=== PATIENT | female | born 1950 | race Caucasian/White ===

== ENCOUNTER → 2024-04-04 | Outpatient (CLI) | payer MEDICARE, SELFPAY ==
[2024-04-04 09:30] LABS: Basophils % (Auto) 1 % (0-2.5); Eosinophils # (Auto) 0.2 Thou/mm3 (0.0-0.5); Eosinophils % (Auto) 3 % (0-10); Hematocrit 29.9 % (36.0-46.0); Immature Granulocytes % (Auto) 0 % (0-0); Immature Granulocytes Auto 0.02 Thou/mm3 (0.00-0.00); Lymphocytes # (Auto) 1.2 Thou/mm3 (1.0-4.8); Lymphocytes % (Auto) 16 % (10-50); Mean Corpuscular HGB Conc 28.4 g/dl (31.0-37.0); Mean Corpuscular Hemoglobin 19.1 pg (25.0-35.0); Mean Corpuscular Volume 67 fL (80-100); Monocytes # (Auto) 0.5 Thou/mm3 (0.0-0.8); Monocytes % (Auto) 7 % (0-12); Neutrophils # (Auto) 5.8 Thou/mm3 (1.8-7.7); Neutrophils % (Auto) 74 % (37-80); Nucleated Red Blood Cell % 0 /100 WBC (0); Platelet Count 238 Thou/mm3 (140-440); RDW Standard Deviation 47.1 fL (36.4-46.3); Red Blood Count 4.46 Miln/mm3 (4.00-5.20); White Blood Count 7.8 Thou/mm3 (3.6-11.0)
[2024-04-04 09:34] LABS: Hemoglobin 8.5 g/dL (12.0-16.0)
[2024-04-04 09:35] LABS: Collection Type, Urine Clean Catch
[2024-04-04 09:40] LABS: Glucose Estimated Average 171 mg/dL (80-131); Hemoglobin A1C 7.6 % Hgb (4.8-6.0)
[2024-04-04 09:58] LABS: Alanine Aminotransferase 15 U/L (10-49); Albumin, Serum 4.6 gm/dL (3.4-4.8); Albumin/Globulin Ratio 1.8 (1.2-2.2); Alkaline Phosphatase 74 U/L (46-116); Anion Gap 7 (7-16); Aspartate Amino Transferase 18 U/L (0-34); BUN/Creatinine Ratio 18 Ratio (12-20); Bilirubin,Total 0.4 mg/dL (0.3-1.2); Blood Urea Nitrogen 14 mg/dL (9-23); Calcium 9.4 mg/dL (8.3-10.6); Calcium (Corrected) 9.4 mg/dL (8.5-10.1); Carbon Dioxide 28.2 mMol/L (20.0-31.0); Cardiac Risk Estimate 2.3 RATIO (3.7-5.6); Chloride 103 mMol/L (98-107); Cholesterol 121 mg/dL (132-200); Creatinine (Component) 0.8 mg/dL (0.6-1.3); Free T4 (Free Thyroxine) 1.07 ng/dL (0.89-1.76); Globulin 2.6 gm/dL (2.3-3.5); Glucose 161 mg/dL (74-106); HDL Cholesterol 52 mg/dL (40-60); LDL Cholesterol,Calculated 55 mg/dL (0-130); Osmolality,Calculated 279 (275-295); Potassium 4.5 mMol/L (3.4-5.1); Sodium 138 mMol/L (136-145); Thyroid Stimulating Hormone 1.66 uIU/mL (0.55-4.78); Total Protein 7.2 gm/dL (5.7-8.2); Triglycerides 71 mg/dL (30-150); eGFR > 60 See Note
[2024-04-04 10:51] LABS: Creatinine MALB Rnd Ur 54 mg/dL (30-125); Microalbumin Creat Ratio 6 mg/gCrea (<30); Microalbumin, Random Urine 3 mg/L (0-300)
[2024-04-04 10:55] LABS: Bilirubin,Urine Negative (Negative); Blood,Urine Negative (Negative); Clarity,Urine Clear (Clear/Hazy); Color,Urine Lt-Yellow (Lt Yel-Yel); Glucose, Urine 4+ (Negative); Ketones,Urine Negative (Negative); Leukocyte Esterase,Urine Positive (Negative); Nitrite,Urine Negative (Negative); Protein,Urine Negative (Neg - Trace); RBC,Urine 3 /hpf (0-3); Specific Gravity,Urine 1.025 (1.001-1.035); Squamous Epithelial Cell,Urine 2 /hpf (0-5); Urobilinogen,Urine Negative mg/dL (0.0-1.0); WBC,Urine 3 /hpf (0-5)
[2024-04-04 11:04] LABS: Path Review Blood Smear Sent to Pathologist
[2024-04-11 06:58] LABS: Direct LDL* 59 mg/dL (<100)
== END | disposition home or self-care (01) ==
PROVIDERS: PCP Family Medicine; Referring Provider Nurse Practitioner Family; Visit Provider Nurse Practitioner Family
DX: E11.21 Type 2 diabetes mellitus with diabetic nephropathy (principal); I10 Essential (primary) hypertension; E78.00 Pure hypercholesterolemia, unspecified; Z13.29 Encounter for screening for other suspected endocrine disorder
CPT/HCPCS: 36415; 80053; 80061; 81001; 82043; 82570; 83036; 83721; 84439; 84443; 85025

== ENCOUNTER → 2024-07-17 | Outpatient (CLI) | payer MEDICARE, MEDICAID, SELFPAY ==
[2024-07-17 11:36] LABS: Basophils % (Auto) 1 % (0-2.5); Eosinophils # (Auto) 0.2 Thou/mm3 (0.0-0.5); Eosinophils % (Auto) 3 % (0-10); Hematocrit 33.4 % (36.0-46.0); Hemoglobin 10.2 g/dL (12.0-16.0); Immature Granulocytes % (Auto) 0 % (0-0); Immature Granulocytes Auto 0.02 Thou/mm3 (0.00-0.00); Lymphocytes # (Auto) 1.3 Thou/mm3 (1.0-4.8); Lymphocytes % (Auto) 18 % (10-50); Mean Corpuscular HGB Conc 30.5 g/dl (31.0-37.0); Mean Corpuscular Hemoglobin 20.9 pg (25.0-35.0); Mean Corpuscular Volume 68 fL (80-100); Monocytes # (Auto) 0.6 Thou/mm3 (0.0-0.8); Monocytes % (Auto) 8 % (0-12); Neutrophils # (Auto) 5.1 Thou/mm3 (1.8-7.7); Neutrophils % (Auto) 70 % (37-80); Nucleated Red Blood Cell % 0 /100 WBC (0); Platelet Count 235 Thou/mm3 (140-440); Red Blood Count 4.88 Miln/mm3 (4.00-5.20); White Blood Count 7.2 Thou/mm3 (3.6-11.0)
[2024-07-17 11:43] LABS: Iron 20 mcg/dL (50-170); Total Iron Binding Capacity 459 mcg/dL (250-425)
[2024-07-17 11:55] LABS: Alanine Aminotransferase 10 U/L (10-49); Albumin, Serum 4.8 gm/dL (3.4-4.8); Albumin/Globulin Ratio 1.7 (1.2-2.2); Alkaline Phosphatase 83 U/L (46-116); Anion Gap 9 (7-16); Aspartate Amino Transferase 21 U/L (0-34); BUN/Creatinine Ratio 12 Ratio (12-20); Bilirubin,Total 0.3 mg/dL (0.3-1.2); Blood Urea Nitrogen 11 mg/dL (9-23); Calcium 9.4 mg/dL (8.3-10.6); Calcium (Corrected) 9.4 mg/dL (8.5-10.1); Carbon Dioxide 26.2 mMol/L (20.0-31.0); Cardiac Risk Estimate 3.6 RATIO (3.7-5.6); Chloride 106 mMol/L (98-107); Cholesterol 181 mg/dL (132-200); Creatinine (Component) 0.9 mg/dL (0.6-1.3); Globulin 2.8 gm/dL (2.3-3.5); Glucose 121 mg/dL (74-106); HDL Cholesterol 50 mg/dL (40-60); LDL Cholesterol,Calculated 107 mg/dL (0-130); Osmolality,Calculated 281 (275-295); Potassium 4.8 mMol/L (3.4-5.1); Sodium 141 mMol/L (136-145); Total Protein 7.6 gm/dL (5.7-8.2); Triglycerides 119 mg/dL (30-150); eGFR > 60 See Note
== END | disposition home or self-care (01) ==
PROVIDERS: PCP Nurse Practitioner Family; Referring Provider Nurse Practitioner Family; Visit Provider Nurse Practitioner Family
DX: D50.8 Other iron deficiency anemias (principal); E11.21 Type 2 diabetes mellitus with diabetic nephropathy; E78.00 Pure hypercholesterolemia, unspecified
CPT/HCPCS: 36415; 80053; 80061; 83540; 83550; 83721; 85025

== ENCOUNTER → 2024-07-18 | Outpatient (CLI) | payer MEDICARE, MEDICAID, SELFPAY ==
--- NOTE | 2024-07-18 10:11 | XR_ITS ---
Examination: PA lateral chest 2 views TECHNIQUE: Upright PA lateral chest 2 views Date and time: July 18, 2024 1052 hours Comparison February 08, 2019 Coughing congestion 2 weeks. FINDINGS: Subtle nodular opacities in both mid lungs and right base as well as right base medially Normal heart size Moderate osteopenia IMPRESSION: Findings consistent with early bilateral pneumonia, follow-up strongly recommended to document clearing and exclude underlying pulmonary nodules
== END | disposition home or self-care (01) ==
LOC: CDIM 10:05
PROVIDERS: PCP Nurse Practitioner Family; Referring Provider Nurse Practitioner Family; Visit Provider Nurse Practitioner Family
DX: R91.8 Other nonspecific abnormal finding of lung field (principal)
CPT/HCPCS: 71046

== ENCOUNTER 2024-07-30 16:16 | Emergency (ER) | payer MEDICARE, MEDICAID, SELFPAY ==
[2024-07-30] VITALS (10 sets, daily range): BP systolic 139–177; BP diastolic 64–86; PULSE 66–94; RESP 13–24; TEMP 36.1–36.8; O2SAT 96–99; BMI 24.9
--- NOTE | 2024-07-30 17:14 | PC.NURSE ---
Patient rashaad from home with altered mental status x 1 day with confusion/lethargy. Per medic, IVL was placed and patient pulled out. Patient denies pain, states she doesnt know.
--- NOTE | 2024-07-30 18:22 | EKG_ITS ---
[facility] Test Date: 2024-07-30 Pat Name: JUVENCIO OATES Department: Room: - Gender: Female Echocardiography Tech: : 1950 Requested By: Sal Lakhani Order Number: [id number] Reading MD: Sal Lakhani Measurements Intervals [place] Rate: 75 P: 79 SC: 152 QRS: 42 QRSD: 112 T: 64 QT: 420 QTc: 471 Interpretive Statements SINUS RHYTHM POSSIBLE LEFT ATRIAL ENLARGEMENT [-0.1mV P-WAVE IN V1/V2] MODERATE INTRAVENTRICULAR CONDUCTION DELAY [110+ ms QRS DURATION] No previous ECG available for comparison /store/S0/[id number]/ecg/[id number].pdf
--- NOTE | 2024-07-30 18:22 | PD.EDAMS ---
Altered Mental Status RME/HPI General Chief Complaint: Altered Mental Status Stated Complaint: ALTERED Time Seen by Provider: 07/30/24 18:20 Arrival date/time: 07/30/24 16:16 RME / HPI RME / HPI narrative: This section includes all my notes and documentations, including HPI, PE, and ED course. Sal Westbrook MD HPI: 73 y/o female with Hx of Type II DM and Hypertension presents to ED BIBA from home c/o vomiting, confusion, dizziness, and weakness x 40 hours. Daughter reports patient began vomiting shortly after consuming chicken livers that had been sitting in the refrigerator for a few days. Patient is usually independent, coherent, and ambulates well on her own. No other complaints. ROS: All negative except as documented in HPI. Physical Exam: General: Alert and disoriented. Appearance with severe malaise noted. Eyes: Conjunctivae and lids clear. EOMI. PERRL. ENT: No nasal congestion. Neck: Supple. Heart: RRR. Lungs: No respiratory distress. Good air movement. No significant rhonchi, wheezing, rales. Abdomen: Soft with equivocal tenderness. Normal bowel sounds. No distension. No rebound or guarding. Back: No CVA tenderness. Legs: No clubbing, cyanosis, edema. Skin: Warm and dry. Neuro: Alert and disoriented. Cranial Nerves II-XII grossly intact. No peripheral motor deficits. I reviewed EMS notes. I reviewed all diagnostic test results. My interpretation of the EKG is: Sinus rhythm (75 bpm) with nonspecific ST-T changes. Sal Westbrook MD My interpretation of the chest x-ray is suspicious for early pneumonia in the left upper lobe. My review of the Head CT report is very large left temporal occipital lobe hemorrhage with surrounding edema and significant mass effect as above, differential would include hemorrhagic infarct, rupture of an aneurysm, hemorrhage in an occipital lobe neoplasm. My review of the Chest/Abdomen/Pelvis CT report is numerous bilateral pulmonary nodules, likely metastatic pulmonary nodular disease. 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 Blood tests unremarkable. COVID/influenza negative. Urine specimen pending. At this point, diagnoses include Intracranial hemorrhage. Treatment here included IV fluid, Zofran. Patient remained stable. I discussed the case with Dr. Agudelo ([facility]). About the presentation and exam and diagnostics and treatments here. And need of further care there. Will accept the patient. Sal Westbrook MD Related Data Home Medications ?Medication ?Instructions ?Recorded ?Confirmed metformin 500 mg tablet 1,000 mg PO BID 08/23/18 02/06/19 lisinopril 10 mg tablet 2.5 mg PO QDAY 11/02/18 02/06/19 atorvastatin 40 mg tablet 40 mg PO QPM 01/24/19 02/06/19 hydrochlorothiazide 12.5 mg 12.5 mg PO QDAY 01/24/19 02/06/19 capsule (Microzide) Previous Rx's ?Medication ?Instructions ?Recorded blood-glucose meter #1 ea 08/24/18 lancets 30 gauge (1st Tier Unilet #100 ea 08/24/18 ComforTouch Lancet) Allergies Allergy/AdvReac Type Severity Reaction Status Date / Time adhesive Allergy Severe severe Verified 07/30/24 17:13 adhesive tape Allergy Severe Rash Verified 07/30/24 17:13 Latex, Natural Rubber Allergy Severe Hives Verified 07/30/24 17:13 codeine Allergy Vomiting Verified 07/30/24 17:13 morphine Allergy Verified 07/30/24 17:13 Review of Systems Review of Systems Systems Reviewed: All systems reviewed, normal except as documented Past Medical History Past Medical History CARDIAC: Positive Cardiac Disorders, Hypercholesterolemia, Edema and Hypertension GASTROINTESTINAL: Positive Gastrointestinal Disorders (HEP C), Hepatitis (Hep C) and Cirrhosis REPRODUCTIVE: Positive Previous Pregnancies ENDOCRINE: Positive Endocrine Disorders and Diabetes Mellitus Type 2 PSYCHO/SOCIAL: Positive Depression and Anxiety Surgical History SURGICAL: Positive Tonsillectomy and Abdominal Surgery (EXPLORATORY LAP) Social History SECOND HAND EXPOSURE: Yes ED Exam Narrative Physical exam: Refer to HPI above Course Quality Measures none Orders Category Date Time Status Bedside COVID-19 Antigen Test NOW Care 07/30/24 18:21 Active Bedside Influenza A&B Antigen Test NOW Care 07/30/24 18:21 Completed EKG (ED ONLY) *Do not use* NOW Care 07/30/24 18:22 Completed Saline [Insert IV] NOW Care 07/30/24 18:21 Active Straight [In and Out Catheter] X1 Care 07/30/24 18:21 Completed Referral - Executive Director Of Nursing Stat Cons 07/30/24 18:53 Active Transfer to another facility [Transfer/Discharge] Stat Discharge 07/30/24 19:[address] chest abdomen pelvis wo Stat Exams 07/30/24 18:[address] head/brain wo con Stat Exams 07/30/24 18:23 Completed EKG (ED Only) Stat Exams 07/30/24 18:22 Draft XR chest 1V portable Stat Exams 07/30/24 18:23 Completed ESMOLOL in NS 2000 MG IVPB Med 07/30/24 19:39 Active 2,000 mg in 100 ml IV 500 mcg/kg/min Ondansetron Inj [Zofran Inj] Med 07/30/24 18:21 Discontinued 4 mg IVP X1 ONE Sodium Chloride 0.9% 1000 ml [Ns] 1,000 ml Med 07/30/24 18:21 Discontinued IV 999 mls/hr Vital Signs Vital signs: Vital Signs Temperature 98.0 F 07/30/24 16:17 Pulse Rate 82 07/30/24 16:17 Respiratory Rate 18 07/30/24 16:17 Blood Pressure 173/73 H 07/30/24 16:17 Pulse Oximetry (%) 98 07/30/24 16:17 Oxygen Delivery Method Room Air 07/30/24 16:17 Altered Mental Status MDM Narrative MDM Narrative:: Scribe Attestation: IGala, am scribing for and in the presence of Dr. Westbrook. Provider Notation: Although this document has been carefully reviewed, there may still be some phonetic and other typographical errors.? These errors are purely grammatical due to imperfections in the software program and should not be construed in any way to? compromise the substance of the patient's medical care during this visit. 73 y/o female with Hx of Type II DM and Hypertension presents to ED BIBA from home c/o vomiting, confusion, dizziness, and weakness x 2 days. Daughter reports patient began vomiting shortly after consuming chicken livers that had been sitting in the refrigerator for a few days. Patient is usually independent, coherent, and ambulates well on her own. No other complaints. Patient data External records reviewed:: [facility] previous records (No recent ED records available for review.) and EMS form Clinical information provided by:: EMS and family (Daughter) Social determinants that could affect healthcare access:: mental health (Depression, Anxiety) Patient has the following chronic illnesses:: Hypercholesterolemia, Edema, Hypertension, Gastrointestinal Disorders (HEP C), Hepatitis (Hep C),Cirrhosis, Diabetes Mellitus Type 2 How is presenting disease/condition affected by chronic disease/condition?: exacerbated by Evaluation data The following diagnostics were reviewed and interpreted by me:: lab results, radiology exam(s), EKG tracing(s) (My interpretation of the EKG is: Sinus rhythm (75 bpm) with nonspecific ST-T changes. Sal Westbrook MD) and other (specify) Lab and/or radiology exams considered but not ordered:: None Interpretation Summary: I reviewed all diagnostic test results. My interpretation of the EKG is: Sinus rhythm (75 bpm) with nonspecific ST-T changes. Sal Westbrook MD My interpretation of the chest x-ray is suspicious for early pneumonia in the left upper lobe. My review of the Head CT report is very large left temporal occipital lobe hemorrhage with surrounding edema and significant mass effect as above, differential would include hemorrhagic infarct, rupture of an aneurysm, hemorrhage in an occipital lobe neoplasm. My review of the Chest/Abdomen/Pelvis CT report is numerous bilateral pulmonary nodules, likely metastatic pulmonary nodular disease. 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 Blood tests unremarkable. COVID/influenza negative. Medications / Prescriptions Medications or Prescriptions considered but not ordered:: None Medication administrations:: Medication Administration History Esmolol HCl (Esmolol In Ns 2000 Mg Ivpb) 2,000 mg in 100 mls @ 98.657 mls/hr IV .Q1H1M PRN; Protocol PRN Reason: PER PROTOCOL Stop: 08/29/24 19:38 Discontinued Medications Sodium Chloride (Ns) 1,000 mls @ 999 mls/hr IV .Q1H1M ONE Stop: 07/30/24 19:21 Last Admin: 07/30/24 18:59 Dose: 999 mls/hr Documented By: CG Ondansetron HCl (Ondansetron Inj 2 Mg/Ml Inj 2 Ml) 4 mg IVP X1 ONE; Protocol Stop: 07/30/24 18:22 Last Admin: 07/30/24 18:59 Dose: 4 mg Documented By: CG IV fluid, Zofran, Consultations Consultation(s) initiated? (list below): Yes Consultation #1 (Physician, Specialty, Details): I discussed the case with Dr. Agudelo ([facility]). About the presentation and exam and diagnostics and treatments here. And need of further care there. Will accept the patient. Time: 19:20 Diagnosis Differential diagnosis altered mental status: alcoholic intoxication, altered mental status, delirium, dementia, hypoglycemia, hyponatremia, subarachnoid hemorrhage, sepsis and other (CVA, BEAD CUTTER tumor, BEAD CUTTER hemorrhage) Most likely diagnosis given after review of the tests above:: Intracranial hemorrhage Admission Indicated Admission indicated?: not indicated Explain why admission is indicated or not indicated:: No neurosurgery service here. Admission Request Was there a request for admission?: No Disposition Plan Disposition Plan: Transfer Critical Care Time Critical Care Time Critical Care Time: Yes Total Critical Care Time (min.): 46 Attestation: Due to a high probability of clinically significant, life threatening deterioration, the patient required my highest level of preparedness to intervene emergently and I personally spent this critical care time directly and personally managing the patient. This critical care time included obtaining a history; examining the patient; ordering and review of studies; arranging urgent treatment with development of a management plan; evaluation of patient's response to treatment; frequent reassessment; and discussions with family and other providers. It was exclusive of separately billable procedures and treating other patients and teaching time. Sal Westbrook MD Discharge Plan Plan Patient Disposition: [facility] Pt Being Transferred to: [facility] Service Needed for Transfer: Neurosurgery Prescriptions/Referrals Prescriptions/Med Rec: No Action atorvastatin 40 mg Tablet 40 mg PO QPM hydrochlorothiazide [Microzide] 12.5 mg Capsule 12.5 mg PO QDAY metformin 500 mg Tablet 1,000 mg PO BID (DME) blood-glucose meter misc See Dose Instructions .ROUTE .MEDSUPPLY Qty: 1 0RF Dose Instruction: As directed Rx Instructions: As directed (DME) lancets [1st Tier Unilet ComforTouch] 30 gauge misc See Dose Instructions .ROUTE .MEDSUPPLY Qty: 100 0RF Dose Instruction: As directed Rx Instructions: As directed lisinopril 10 mg Tablet 2.5 mg PO QDAY Referrals: No Primary/Family,Physician [Primary Care Provider] - In 1 week Problem List Clinical Impression: Intracranial hemorrhage Patient/Caregiver Discharge Instructions Print Language: Greenlandic Stand Alone Forms: [facility] Award Info., Patient Portal Info Letter
--- NOTE | 2024-07-30 18:23 | XR_ITS ---
Examination: CT brain head without contrast. 2-D sagittal coronal reconstructions Date and time of exam:July 30, 2024 1843 hours INDICATIONS: Altered mental status beginning 2 days ago CTDI: vol (mGy):48.9 DLP: (mGycm):1051 Technique: Multiple CT axial sections of the brain have been obtained, 5 mm slice thickness. Contrast has not been administered. 2-D sagittal, coronal reconstructions have been obtained Low dose protocols were performed. One or more of the following dose reduction techniques were used; automated exposure control, adjustment of the mA and/or KV according to patient size, use of iterative reconstruction technique. Findings: Very large hemorrhage, at least 7.7 x 3.5 in the left temporal occipital lobe Mass effect upon the posterior left lateral ventricle, marked surrounding edema with shift of the frontal horns to the right approximately 3 mm, as well as effacement of cerebral sulci No intraventricular hemorrhage No tonsillar herniation Cranial vault intact IMPRESSION: Very large left temporal occipital lobe hemorrhage with surrounding edema and significant mass effect as above, differential would include hemorrhagic infarct, rupture of an aneurysm, hemorrhage in an occipital lobe neoplasm
--- NOTE | 2024-07-30 18:23 | XR_ITS ---
Examination: AP chest single view Technique one AP portable semiupright chest single view Date and time: July 30, 2024 at 1832 hours Comparison July 18, 2024 INDICATIONS: Shortness of breath and weakness today. FINDINGS: Normal heart size Suspicious for early pneumonia in the left upper lobe Right lung clear Intact osseous structures IMPRESSION: Suspicious for early pneumonia in the left upper lobe
--- NOTE | 2024-07-30 18:23 | XR_ITS ---
Examination: CT chest, without intravenous contrast. CT abdomen, without intravenous contrast. CT pelvis, without intravenous contrast. 2-D sagittal and coronal reconstructions. 3-D reconstructions. Date and time of exam:July 30, 2024 1844 hours INDICATIONS: Chest pain and abdominal pain nausea vomiting today CTDI vol (mgy) 5.80 DLP (MGycm)424 Technique: Multiple CT images, 3.0 mm slice thickness, obtained chest, abdomen, pelvis, with the high-resolution 64 slice scanner.. Sagittal and coronal 2-D reconstructions are obtained. 3-D reconstructions Low dose protocols were performed. One or more of the following dose reduction techniques were used; automated exposure control, adjustment of the mA and/or KV according to patient size, use of iterative reconstruction technique. Findings: Thoracic aortic calcification no aneurysmal dilatation Pulmonary artery segments are not enlarged No paratracheal tracheobronchial or bronchopulmonary adenopathy At least 35 noncalcified bilateral pulmonary nodules ranging in size from 2 to 22 mm, the 22 mm left posterior nodule is cavitary No lobar pneumonia No focal liver or splenic lesions Cholelithiasis, no gallbladder wall edema Large poorly defined tumor mass in the posterior left kidney at least 4.9 x 4.2 cm No ascites Aorta normal size No bowel obstruction Urinary bladder is intact Prominent osteopenia IMPRESSION: Numerous bilateral pulmonary nodules, likely metastatic pulmonary nodular disease 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
--- NOTE | 2024-07-30 18:54 | PC.CC ---
Addendum entered by Afshin Hughes RN 07/30/24 20:00: 1958 pushed images to [facility] via [facility]. Original Note: 1950 received call from Nic with [facility] and he stated [facility] has declined the pt but [facility] has accepted the pt with ETA 52 min. I checked with Dr. Westbrook and he is OK with that. I informed Nic with [facility] to proceed with transport setup. 1947 received call from Antonia with [facility] and he stated ETA would be more than 1 hour 15 min due to lack of closer resources. I informed him to cancel the transport request because we are proceeding with [facility]. [address] Westbrook and informed about accepting info, different ETA times given by [facility] and [facility] and BP control recommendations. Dr. Westbrook is OK with proceeding with [facility]. 1931 called [facility], spoke to Nic for setting up the transport. He stated estimate time is 19 min plus ground time from airport to bedside. He stated it's not confirmed but he will call me back after flight check. 1925 called [facility], spoke to Phil for setting up the transport. Phil stated [facility] can be at bedside in 52 min plus ground time from airport to bedside. I informed it is long wait time. I will reach out to [facility]. 1922 called and informed ED charge nurse. Charge nurse to make packet and CD. 1858 called [facility], spoke to Rd and initiated the transfer. He then connected me to Jaclyn ED charge nurse at [facility] on a conference call. Jaclyn stated she spoke to Dr. Agudelo ER physician and he wants her to speak to neuro IR and neuro surgery. Rd then connected Dr. Farmer neurosurgery IR on the line. He stated to speak to neuro-surgery Dr. Montalvo. Jaclyn spoke to Dr. Coleman and informed me pt is accepted. Jaclyn stated Dr. Agudelo wants us to control the BP below less 140. Total call time 190min. Jaclyn gave me accepting information at 1920. Pt is accepted at [facility] for ED to ED transfer. Accepted by Dr. Agudelo. Call report at [phone]. 1857 clinicals sent to [facility]. [address] Westbrook that pt needs to be transferred for intracranial hemorrhage needs neuro-surgery. Pt is alert and confused on room air. Last know well 24 hours ago.
[2024-07-30] MEDS: SODIUM CHLORIDE 0.9% 1000 ML 1,000 ML 999 ML IV (18:59)
[2024-07-30] MEDS: ONDANSETRON INJ 2 MG/ML INJ 2 ML 4 MG IVP (18:59)
[2024-07-30] MEDS: [UNRECOGNIZED DRUG - OTHER] 98.657 MG IV (19:58)
--- NOTE | 2024-07-30 21:04 | PC.NURSE ---
REPORT GIVEN TO ADI FELIX FROM [facility].
--- NOTE | 2024-07-30 21:11 | PC.NURSE ---
CALLED REPORT TO [facility] SPOKE TO DELL.
[2024-07-30] MEDS: LABETALOL INJ 5 MG/ML VIAL 20 ML 10 MG IVP (21:25)
== END 2024-07-30 21:30 | disposition short-term general hospital (02) ==
PROVIDERS: Emergency Provider Emergency Medicine
DX: I62.9 Nontraumatic intracranial hemorrhage, unspecified (principal); E11.9 Type 2 diabetes mellitus without complications; I10 Essential (primary) hypertension; R06.02 Shortness of breath; R07.9 Chest pain, unspecified
CPT/HCPCS: 70450; 71045; 71250; 74176; 87400; 87811; 93005; 96361; 96365; 99291; J2405; J3490; J7030; J1805; J1920